=== PATIENT | male | born 1980 | race African-American/Black ===

== ENCOUNTER 2021-07-04 18:49 | Emergency (ER) | payer OTHER ==
[~2021-07-04] VITALS: Ht 182.9 cm; Wt 79.4 kg
[2021-07-04 19:36] VITALS: BP 109/65
== END 2021-07-04 19:37 | disposition home or self-care (01) ==
LOC: ER 18:49
DX: U07.1 COVID-19 (principal); Z86.73 Personal history of transient ischemic attack (TIA), and cerebral infarction without residual deficits